=== PATIENT | female | born 1995 | race Caucasian/White ===

== ENCOUNTER 2017-07-23 14:35 | Emergency (ER) | payer MEDICAID ==
[~2017-07-23] VITALS: Ht 170.2 cm; Wt 89.0 kg
[2017-07-23 14:50] VITALS: BP 141/87
[2017-07-23 15:24] LABS: PATH.CAST-FLAG NOT PRESENT; SPERM-FLAG NOT PRESENT; SRC-FLAG NOT PRESENT; XTAL-FLAG NOT PRESENT; YLC-FLAG NOT PRESENT
[2017-07-23 16:16] LABS: HCG UR LOT HCG7030192
[2017-07-23 16:17] LABS: HCG UR OBC PASS
== END 2017-07-23 16:56 | disposition home or self-care (01) ==
LOC: ED 16:25
DX: R10.84 Generalized abdominal pain (principal)
CPT/HCPCS: 81001; 81025; 99284